=== PATIENT | female | born 1960 | race African-American/Black ===

== ENCOUNTER 2016-08-06 04:58 | Emergency (ER) | payer OTHER, BC ==
[~2016-08-06] VITALS: Ht 162.6 cm; Wt 105.0 kg
[~2016-08-06 04:58] MED LIST: ATOR20TA42 PO; FIORIC PO; FURO20 PO; LOSA50 PO; MEDR4PAK3 PO; METO25 PO; NIFE1TAB85 PO; PERC5TAB12 PO
[2016-08-06 05:00] VITALS: BP 193/100; PULSE 113; RESP 20; TEMP 98.1; O2SAT 96
[2016-08-06] MEDS ORDERED: METO25TA3 PO (05:30)
[2016-08-06] MEDS ORDERED: BUTA1CAP PO (05:30)
[2016-08-06] MEDS ORDERED: NIFE30TA8 PO (05:30)
[2016-08-06] MEDS ORDERED: LIPI20TA PO (05:30)
[2016-08-06] MEDS ORDERED: LOSA50TA PO (05:30)
[2016-08-06] MEDS ORDERED: ACET250T3 PO (05:31)
[2016-08-06] MEDS ORDERED: SODIUM CHLORIDE 0.9% FLUSH 5 ML FLUSH IVF PRN (05:45)
[2016-08-06] MEDS ORDERED: RESP: ALBUTEROL 2.5 MG/3 ML NEB (SCH) INH ONE (05:45)
[2016-08-06] MEDS ORDERED: SODIUM CHLOR 0.9% 1000 ML INJ 1,000 ML IV ONE (05:45)
--- NOTE | 2016-08-06 05:57 | PD ---
HPI Chief Complaint: Respiratory Symptoms Time Seen by Provider: 05:29 Travel History International Travel<30 days: No Contact w/Intl Traveler<30days: No Traveled to known affect area: No History of Present Illness HPI Patient is a 56-year-old female who presents to emergency room with complaints of increased cough congestion and shortness of breath for the past 2 days. Patient reports that she has been feeling increased myalgias, no fevers but increased chills over the past 2 days. Reports that she has been coughing, reports that cough has turned into it thick yellow mucus. Reports that her chest does hurt when she coughs. Patient reports no sick contacts, reports that her symptoms have been getting worse for the past 2 days and patient became concerned. Patient with no recent travels or recent trips. Patient is a nonsmoker. PFSH Past Medical History Arthritis: No Asthma: No Anxiety: No Depression: No Heart Rhythm Problems: Yes (A-FIB) Cancer: Yes (CERVICAL CANCER IN 1990) Cardiac Catheterization: Yes Cardiovascular Problems: Yes High Cholesterol: No Chest Pain: No Congestive Heart Failure: No COPD: No Cerebrovascular Accident: No Diminished Hearing: No Endocrine: No Gastrointestinal Disorders: No GERD: No Genitourinary: No Headaches: No Hepatitis: No Hiatal Hernia: No Hypertension: Yes Immune Disorder: No Kidney Stones: No Medical other: Yes (PSEUDOTUMOR CERABRA/ INCREASED ICP) Musculoskeletal: No Neurologic: Yes Psychiatric: No Reproductive: No Respiratory: No Immunizations Current: Yes Migraines: Yes Myocardial Infarction: No Radiation Therapy: Yes Renal Failure: No Seizures: No Ulcer: No Menopausal: Yes : 3 Para: 3 Tubal Ligation: Yes Past Surgical History Abdominal Surgery: Yes Appendectomy: No Cardiac Surgery: Yes (CARDIAC CATH) Cholecystectomy: Yes Ear Surgery: No Endocrine Surgery: No Eye Surgery: No Genitourinary Surgery: Yes Gynecologic Surgery: Yes (TUBAL 1990) Joint Replacement: No Neurologic Surgery: Yes Oral Surgery: No Pacemaker: No Thoracic Surgery: Yes Tonsillectomy: Yes Other Surgery: Yes (CERVICAL HAD RADIATION IMPLANTS R/T CANCER) Social History Alcohol Use: Yes (OCC) Tobacco Use: No Substance Use: No Allergies-Medications (Allergen,Severity, Reaction): Coded Allergies: Iohexol (OMNIPAQUE) (Verified Allergy, Severe, RADIOACTIVE DYE,NEEDS PREMEDS,SWELLING, 08/06/16) Morphine (Verified Allergy, Severe, Anaphylaxis, 08/06/16) Reported Meds & Prescriptions Reported Meds & Active Scripts Active Azithromycin 500 Mg Tab 500 Mg PO DAILY Proair Hfa 8.5 GM Inh (Albuterol Sulfate) 90 Mcg/Act Aer 2 Puff INH Q4-6H PRN 108 mcg/actuation Prednisone 20 Mg Tab 20 Mg PO BID 5 Days Reported Acetazolamide 250 Mg Tab 250 Mg PO TID Nifedipine ER 24 HR (Nifedipine) 30 Mg Tab 1 Tab PO DAILY Metoprolol Tartrate 25 Mg Tab 25 Mg PO BID Losartan (Losartan Potassium) 50 Mg Tab 50 Mg PO DAILY Lipitor (Atorvastatin Calcium) 20 Mg Tab 20 Mg PO HS Fioricet (Sfjfzgdrvs-Ahwedshhcsfil-Ifxuyynp) 50-300-40 Mg Cap 1 Cap PO Q4H PRN Review of Systems General / Constitutional: Positive: Chills, No: Fever Eyes: No: Visual changes HENT: No: Headaches Cardiovascular: No: Chest Pain or Discomfort Respiratory: Positive: Cough, Shortness of Breath Gastrointestinal: No: Abdominal Pain Genitourinary: No: Dysuria Musculoskeletal: No: Pain Skin: No Rash Neurologic: No: Weakness Psychiatric: No: Depression Endocrine: No: Polydipsia Hematologic/Lymphatic: No: Easy Bruising Physical Exam Narrative GENERAL: No acute distress, nontoxic SKIN: Warm and dry. HEAD: Atraumatic. Normocephalic. EYES: Pupils equal and round. No scleral icterus. No injection or drainage. ENT: No nasal bleeding or discharge. Mucous membranes pink and moist. Patient with increased nasal congestion NECK: Trachea midline. No JVD. CARDIOVASCULAR: Regular rate and rhythm. No murmur appreciated. RESPIRATORY: No accessory muscle use. Clear to auscultation. Breath sounds equal bilaterally. GASTROINTESTINAL: Abdomen soft, non-tender, nondistended. Hepatic and splenic margins not palpable. MUSCULOSKELETAL: No obvious deformities. No clubbing. No cyanosis. No edema. NEUROLOGICAL: Awake and alert. No obvious cranial nerve deficits. Motor grossly within normal limits. Normal speech. Data Data Last Documented VS Vital Signs Date Time Temp Pulse Resp B/P Pulse Ox O2 Delivery O2 Flow Rate FiO2 08/06/16 06:45 90 18 171/100 98 Room Air 08/06/16 05:00 98.1 Orders Electrocardiogram (08/06/16 05:36) Complete Blood Count With Diff (08/06/16 05:36) Comprehensive Metabolic Panel (08/06/16 05:36) Influenzae A/B Antigen (08/06/16 05:36) Chest, Single Ap (08/06/16 05:36) Ecg Monitoring (08/06/16 05:36) Iv Access Insert/Monitor (08/06/16 05:36) Oximetry (08/06/16 05:36) Sodium Chloride 0.9% Flush (Ns Flush) (08/06/16 05:45) Sodium Chlor 0.9% 1000 Ml Inj (Ns 1000 M (08/06/16 05:45) Albuterol Neb (Albuterol Neb) (08/06/16 05:45) Methylprednisolone So Succ Inj (Solumedr (08/06/16 06:15) Acetaminophen (Tylenol) (08/06/16 06:45) Labs Laboratory Tests Test 08/06/16 05:40 White Blood Count 6.7 TH/MM3 Red Blood Count 4.39 MIL/MM3 Hemoglobin 12.9 GM/DL Hematocrit 38.1 % Mean Corpuscular Volume 86.9 FL Mean Corpuscular Hemoglobin 29.3 PG Mean Corpuscular Hemoglobin 33.7 % Concent Red Cell Distribution Width 13.8 % Platelet Count 378 TH/MM3 Mean Platelet Volume 7.9 FL Neutrophils (%) (Auto) 41.1 % Lymphocytes (%) (Auto) 49.1 % Monocytes (%) (Auto) 7.0 % Eosinophils (%) (Auto) 2.1 % Basophils (%) (Auto) 0.7 % Neutrophils # (Auto) 2.8 TH/MM3 Lymphocytes # (Auto) 3.3 TH/MM3 Monocytes # (Auto) 0.5 TH/MM3 Eosinophils # (Auto) 0.1 TH/MM3 Basophils # (Auto) 0.0 TH/MM3 CBC Comment DIFF FINAL Differential Comment Sodium Level 140 MEQ/L Potassium Level 3.3 MEQ/L Chloride Level 106 MEQ/L Carbon Dioxide Level 26.4 MEQ/L Anion Gap 8 MEQ/L Blood Urea Nitrogen 12 MG/DL Creatinine 0.76 MG/DL Estimat Glomerular Filtration 95 ML/MIN Rate Random Glucose 107 MG/DL Calcium Level 8.6 MG/DL Total Bilirubin 0.4 MG/DL Aspartate Amino Transf 16 U/L (AST/SGOT) Alanine Aminotransferase 24 U/L (ALT/SGPT) Alkaline Phosphatase 92 U/L Total Protein 8.4 GM/DL Albumin 3.7 GM/DL MDM Medical Decision Making Medical Screen Exam Complete: Yes Emergency Medical Condition: Yes Interpretation(s) EKG: NSR at 88bpm, qt/qtc: 304/350 nonspecific t wave changes Vital Signs Date Time Temp Pulse Resp B/P Pulse Ox O2 Delivery O2 Flow Rate FiO2 08/06/16 05:16 113 20 96 Room Air 08/06/16 05:00 98.1 113 20 193/100 96 Room Air Last Impressions Chest X-Ray 08/06/16 0536 Signed Impressions: Service Date/Time: Saturday, August 06, 2016 05:40 - CONCLUSION: Left basilar subsegmental atelectasis. Carl Brown MD Laboratory Tests Test 08/06/16 05:40 White Blood Count 6.7 TH/MM3 (4.0-11.0) Red Blood Count 4.39 MIL/MM3 (4.00-5.30) Hemoglobin 12.9 GM/DL (11.6-15.3) Hematocrit 38.1 % (35.0-46.0) Mean Corpuscular Volume 86.9 FL (80.0-100.0) Mean Corpuscular Hemoglobin 29.3 PG (27.0-34.0) Mean Corpuscular Hemoglobin 33.7 % Concent (32.0-36.0) Red Cell Distribution Width 13.8 % (11.6-17.2) Platelet Count 378 TH/MM3 (150-450) Mean Platelet Volume 7.9 FL (7.0-11.0) Neutrophils (%) (Auto) 41.1 % (16.0-70.0) Lymphocytes (%) (Auto) 49.1 % (9.0-44.0) Monocytes (%) (Auto) 7.0 % (0.0-8.0) Eosinophils (%) (Auto) 2.1 % (0.0-4.0) Basophils (%) (Auto) 0.7 % (0.0-2.0) Neutrophils # (Auto) 2.8 TH/MM3 (1.8-7.7) Lymphocytes # (Auto) 3.3 TH/MM3 (1.0-4.8) Monocytes # (Auto) 0.5 TH/MM3 (0-0.9) Eosinophils # (Auto) 0.1 TH/MM3 (0-0.4) Basophils # (Auto) 0.0 TH/MM3 (0-0.2) CBC Comment DIFF FINAL Differential Comment Sodium Level 140 MEQ/L (136-145) Potassium Level 3.3 MEQ/L (3.5-5.1) Chloride Level 106 MEQ/L (98-107) Carbon Dioxide Level 26.4 MEQ/L (21.0-32.0) Anion Gap 8 MEQ/L (5-15) Blood Urea Nitrogen 12 MG/DL (7-18) Creatinine 0.76 MG/DL (0.50-1.00) Estimat Glomerular Filtration 95 ML/MIN (>89) Rate Random Glucose 107 MG/DL (74-106) Calcium Level 8.6 MG/DL (8.5-10.1) Total Bilirubin 0.4 MG/DL (0.2-1.0) Aspartate Amino Transf 16 U/L (15-37) (AST/SGOT) Alanine Aminotransferase 24 U/L (10-53) (ALT/SGPT) Alkaline Phosphatase 92 U/L (45-117) Total Protein 8.4 GM/DL (6.4-8.2) Albumin 3.7 GM/DL (3.4-5.0) Microbiology Date/Time Procedure Status Source Growth 08/06/16 06:30 Influenza Types A,B Antigen ([place]) Received Nasal Aspirate Pending Differential Diagnosis Influenza, pneumonia, URI, sinusitis Narrative Course Patient is a 56-year-old female who presents to emergency room with complaints of not feeling well. Patient reports that for the past 2 days, she has increased productive cough with increased nasal congestion with increased chills and as well as myalgias. Patient with no sick contacts. Patient reports that her symptoms today getting worse over the past 2 days, patient here for evaluation. pt placed on cardiac, ekg ordered, cbc, bmp and influenza ordered for evaluation of symptoms, chest xray ordered as well. will give pt iv fluids and steroids and neb treatment and re-evaluate pt Patient reevaluated, patient reports that she is feeling much better, will discharge patient to home with instructions to follow-up with her primary care doctor. Patient will return to ER as needed Diagnosis Primary Impression: URI (upper respiratory infection) Qualified Code: J06.9 - Viral upper respiratory tract infection Additional Impression: Bronchitis Patient Instructions: General Instructions Additional Instructions: Please return to ER as needed Please follow-up with your primary care doctor Please drink plenty of fluids Med/Other Pt SpecificInfo: Prescription(s) given Scripts Azithromycin 500 Mg [id number] Mg PO DAILY #5 TAB Ref 0 Prov:Chata Guzman DO 08/06/16 Albuterol 8.5 GM Inh (Proair Hfa 8.5 GM Inh)90 Mcg/Act Aer2 Puff INH Q4-6H PRN ( SHORTNESS OF BREATH) #1 INHALER Ref 0 108 mcg/actuation Prov:Chata Guzman DO 08/06/16 Prednisone 20 Mg Tab20 Mg PO BID 5 Days Ref 0 Prov:Chata Guzman DO 08/06/16 Disposition: 01 DISCHARGE HOME Condition: Stable Chata Guzman DO Aug 06, 2016 05:57
[2016-08-06 06:00] VITALS: BP 140/77; PULSE 92; RESP 18; O2SAT 97
[2016-08-06 06:00] LABS: AUTOMATED NEUTROPHIL # 2.8 TH/MM3 (1.8-7.7); BASOPHIL % 0.7 % (0.0-2.0); EOSINOPHIL # 0.1 TH/MM3 (0-0.4); EOSINOPHIL % 2.1 % (0.0-4.0); HEMATOCRIT 38.1 % (35.0-46.0); HEMO FLAGS DIFF FINAL; LYMPH % 49.1 % (9.0-44.0); LYMPHOCYTE # 3.3 TH/MM3 (1.0-4.8); MEAN CELL VOLUME 86.9 FL (80.0-100.0); MEAN CORPUSCULAR HEMOGLOBIN 29.3 PG (27.0-34.0); MEAN CORPUSCULAR HGB CONC 33.7 % (32.0-36.0); NEUT % 41.1 % (16.0-70.0); PLATELET COUNT 378 TH/MM3 (150-450); RED BLOOD COUNT 4.39 MIL/MM3 (4.00-5.30); RED CELL DISTRIBUTION WIDTH 13.8 % (11.6-17.2); WHITE BLOOD COUNT 6.7 TH/MM3 (4.0-11.0)
--- NOTE | 2016-08-06 06:03 | RADRPT ---
EXAM DATE/TIME: 08/06/2016 05:40 [facility] COMPARISON: CHEST SINGLE AP, July 20, 2013, 18:28. INDICATIONS : Shortness of breath. MEDICAL HISTORY : Hypertension. Cardiovascular disease. SURGICAL HISTORY : Tubal ligation. ENCOUNTER: Initial ACUITY: 1 day PAIN SCORE: 0/10 LOCATION: Bilateral chest FINDINGS: A single view of the chest demonstrates left basilar subsegmental atelectasis without evidence of mas s, infiltrate or effusion. Heart normal in size. The cardiomediastinal contours are unremarkable. O sseous structures are intact. CONCLUSION: Left basilar subsegmental atelectasis. Carl Brown MD on August 06, 2016 at 6:01 Board Certified Radiologist. This report was verified electronically.
[2016-08-06] MEDS ORDERED: methylPREDNISolone SOD SUCC 125 MG/2 ML VIAL IVP ONE (06:15)
[2016-08-06 06:25] LABS: ANION GAP 8 MEQ/L (5-15); AST (GOT) 16 U/L (15-37); BICARBONATE 26.4 MEQ/L (21.0-32.0); BLOOD UREA NITROGEN 12 MG/DL (7-18); CHLORIDE 106 MEQ/L (98-107); GLOMERULAR FILTRATION RATE 95 ML/MIN (>89); POTASSIUM 3.3 MEQ/L (3.5-5.1); SODIUM (NA) 140 MEQ/L (136-145)
[2016-08-06 06:28] LABS: ALKALINE PHOSPHATASE 92 U/L (45-117); ALT (GPT) 24 U/L (10-53); TOTAL BILIRUBIN ADULT 0.4 MG/DL (0.2-1.0)
[2016-08-06 06:45] VITALS: BP 171/100; PULSE 90; RESP 18; O2SAT 98
[2016-08-06] MEDS ORDERED: ACETAMINOPHEN 325 MG TAB PO ONE (06:45)
[2016-08-06] MEDS ORDERED: PRED20 PO (06:59)
[2016-08-06] MEDS ORDERED: AZIT500T2 PO (06:59)
[2016-08-06] MEDS ORDERED: ALBUAER3 INH (06:59)
--- NOTE | 2016-08-06 08:20 | EKG ---
Date Performed: 08/06/2016 Time Performed: 06:40:30 PTAGE: 56 years EKG: Sinus rhythm NONSPECIFIC T-WAVE ABNORMALITY BORDERLINE ECG PREVIOUS TRACING : 12/10/2015 06.30 No significant change from previous tracing noted. DOCTOR: Santhosh Garcia Interpretating Date/Time 08/06/2016 08:18:44
== END 2016-08-06 07:36 | disposition home or self-care (01) ==
LOC: NEPC 04:58
DX: J06.9 Acute upper respiratory infection, unspecified (principal); B97.89 Other viral agents as the cause of diseases classified elsewhere; J40 Bronchitis, not specified as acute or chronic; M79.1 Myalgia; R94.31 Abnormal electrocardiogram [ECG] [EKG]; I10 Essential (primary) hypertension; I48.91 Unspecified atrial fibrillation; Z85.41 Personal history of malignant neoplasm of cervix uteri; Z86.79 Personal history of other diseases of the circulatory system; Z86.69 Personal history of other diseases of the nervous system and sense organs
CPT/HCPCS: 71010; 80053; 85025; 87804; 93005; 94664; 96361; 96374; 99284; J2930; J7030; J7613

== ENCOUNTER 2017-06-06 23:13 | Emergency (ER) | payer BC, OTHER ==
[~2017-06-06] VITALS: Ht 165.1 cm; Wt 100.0 kg
[~2017-06-06 23:13] MED LIST changes: +ACET250T3 PO; -ATOR20TA42 PO; +BUTA1CAP PO; -FIORIC PO; -FURO20 PO; +LIPI20TA PO; -LOSA50 PO; +LOSA50TA PO; -MEDR4PAK3 PO; -METO25 PO; +METO25TA3 PO; -NIFE1TAB85 PO; +NIFE30TA8 PO; -PERC5TAB12 PO
[2017-06-06 23:22] VITALS: BP 174/97; PULSE 93; RESP 18; TEMP 98.1; O2SAT 98
[2017-06-06] MEDS ORDERED: ASPIRIN 325 MG TAB PO ONE (23:30)
[2017-06-06] MEDS ORDERED: SODIUM CHLORIDE 0.9% FLUSH 10 ML FLUSH IVF PRN (23:30)
[2017-06-06] MEDS ORDERED: OXYC-392 PO (23:36)
[2017-06-06] MEDS ORDERED: LOSA100T PO (23:36)
[2017-06-06] MEDS ORDERED: ATOR80TA45 PO (23:36)
[2017-06-06] MEDS ORDERED: ASPI-516 CHEW (23:36)
--- NOTE | 2017-06-06 23:41 | PD ---
HPI Chief Complaint: Chest Pain Time Seen by Provider: 23:29 Travel History International Travel<30 days: No Contact w/Intl Traveler<30days: No Traveled to known affect area: No History of Present Illness HPI The patient is a 57-year-old female that complains of intermittent left and right shoulder pain and right chest pain since yesterday morning. The patient does have a history of coronary artery disease which is rather mild, at coronary angiogram done in March of this year showed a 50% and 30% blockages. This was done by Dr. Ibanez. She was treated medically for elevated cholesterol and her hypertension. She denies diaphoresis, nausea. She did take nitroglycerin today at 1800 with no relief. She claims a pain level of 6/10 and an aching type character. PFSH Past Medical History Arthritis: No Asthma: No Anxiety: No Depression: No Heart Rhythm Problems: Yes (A-FIB) Cancer: Yes (cervical) Cardiac Catheterization: Yes Cardiovascular Problems: Yes High Cholesterol: No Chest Pain: No Congestive Heart Failure: No COPD: No Cerebrovascular Accident: No Coronary Artery Disease: Yes Diminished Hearing: No Endocrine: No Gastrointestinal Disorders: No GERD: No Genitourinary: No Headaches: No Hepatitis: No Hiatal Hernia: No Hypertension: Yes Immune Disorder: No Kidney Stones: No Musculoskeletal: No Neurologic: Yes Psychiatric: No Reproductive: No Respiratory: No Immunizations Current: Yes Migraines: Yes Myocardial Infarction: No Radiation Therapy: Yes Renal Failure: No Seizures: No Ulcer: No Tetanus Vaccination: Unknown Influenza Vaccination: No ?: Not LMP: 1991 Menopausal: Yes : 3 Para: 3 Tubal Ligation: Yes Past Surgical History Abdominal Surgery: Yes Appendectomy: No Cardiac Surgery: Yes (CARDIAC CATH) Cholecystectomy: Yes Ear Surgery: No Endocrine Surgery: No Eye Surgery: No Genitourinary Surgery: Yes Gynecologic Surgery: Yes (TUBAL 1991) Joint Replacement: No Neurologic Surgery: Yes Oral Surgery: No Pacemaker: No Thoracic Surgery: Yes Tonsillectomy: Yes Other Surgery: Yes (CERVICAL HAD RADIATION IMPLANTS R/T CANCER) Social History Alcohol Use: No Tobacco Use: No Substance Use: No Allergies-Medications (Allergen,Severity, Reaction): Coded Allergies: iohexol (Verified Allergy, Severe, RADIOACTIVE DYE,NEEDS PREMEDS,SWELLING , 06/06/17) morphine (Verified Allergy, Severe, Anaphylaxis, 06/06/17) Reported Meds & Prescriptions Reported Meds & Active Scripts Active Reported Oxycodone (Oxycodone HCl) 5 Mg Tab 5 Mg PO Q6HR Aspirin 81 Mg Chew 81 Mg CHEW DAILY Losartan (Losartan Potassium) 100 Mg Tab 100 Mg PO DAILY Atorvastatin (Atorvastatin Calcium) 80 Mg Tab 80 Mg PO HS Acetazolamide 250 Mg Tab 500 Mg PO BID Nifedipine ER 24 HR (Nifedipine) 30 Mg Tab 1 Tab PO DAILY Metoprolol Tartrate 25 Mg Tab 25 Mg PO BID Review of Systems Except as stated in HPI: all other systems reviewed are Neg Physical Exam Narrative GENERAL: The patient is alert, oriented 3, somewhat anxious, in minimal distress with her right chest pain and left shoulder pain. Her vital signs show blood pressure 1 7497 with heart rate of 93 but otherwise normal. SKIN: Focused skin assessment warm/dry. HEAD: Atraumatic. Normocephalic. EYES: Pupils equal and round. No scleral icterus. No injection or drainage. ENT: No nasal bleeding or discharge. Mucous membranes pink and moist. NECK: Trachea midline. No JVD. CARDIOVASCULAR: Regular rate and rhythm. No murmur appreciated. I can completely reproduce the patient's pain by pressing on the chest wall on the right and squeezing the trapezius muscle on the left shoulder. RESPIRATORY: No accessory muscle use. Clear to auscultation. Breath sounds equal bilaterally. GASTROINTESTINAL: Abdomen soft, non-tender, nondistended. Hepatic and splenic margins not palpable. MUSCULOSKELETAL: No obvious deformities. No clubbing. No cyanosis. No edema. NEUROLOGICAL: Awake and alert. No obvious cranial nerve deficits. Motor grossly within normal limits. Normal speech. PSYCHIATRIC: Appropriate mood and affect except for mild anxiety; insight and judgment normal. Data Data Last Documented VS Vital Signs Date Time Temp Pulse Resp B/P (MAP) Pulse Ox O2 Delivery O2 Flow Rate FiO2 06/07/17 00:39 68 16 135/79 (97) 99 Room Air 06/06/17 23:42 2.00 06/06/17 23:22 98.1 Orders Orders Electrocardiogram (06/06/17 23:29) Ckmb (Isoenzyme) Profile (06/06/17 23:29) Complete Blood Count With Diff (06/06/17 23:29) Comprehensive Metabolic Panel (06/06/17 23:29) Magnesium (Mg) (06/06/17 23:29) Troponin I (06/06/17 23:29) Ecg Monitoring (06/06/17 23:29) Bilateral Bp Monitoring (06/06/17 23:29) Iv Access Insert/Monitor (06/06/17 23:29) Oximetry (06/06/17 23:29) Oxygen Administration (06/06/17 23:29) Aspirin (Aspirin) (06/06/17 23:30) Sodium Chloride 0.9% Flush (Ns Flush) (06/06/17 23:30) Nitroglycerin Sl (Nitrostat Sl) (06/06/17 23:30) Chest, Pa & Lat (06/06/17 23:29) Labs Laboratory Tests Test 06/06/17 23:38 White Blood Count 6.0 TH/MM3 Red Blood Count 4.29 MIL/MM3 Hemoglobin 12.2 GM/DL Hematocrit 38.0 % Mean Corpuscular Volume 88.5 FL Mean Corpuscular Hemoglobin 28.5 PG Mean Corpuscular Hemoglobin Concent 32.2 % Red Cell Distribution Width 13.2 % Platelet Count 398 TH/MM3 Mean Platelet Volume 7.9 FL Neutrophils (%) (Auto) 28.8 % Lymphocytes (%) (Auto) 63.3 % Monocytes (%) (Auto) 5.8 % Eosinophils (%) (Auto) 1.4 % Basophils (%) (Auto) 0.7 % Neutrophils # (Auto) 1.7 TH/MM3 Lymphocytes # (Auto) 3.9 TH/MM3 Monocytes # (Auto) 0.3 TH/MM3 Eosinophils # (Auto) 0.1 TH/MM3 Basophils # (Auto) 0.0 TH/MM3 CBC Comment DIFF FINAL Differential Comment Blood Urea Nitrogen 12 MG/DL Creatinine 0.84 MG/DL Random Glucose 110 MG/DL Total Protein 7.9 GM/DL Albumin 3.6 GM/DL Calcium Level 8.9 MG/DL Magnesium Level 2.2 MG/DL Alkaline Phosphatase 87 U/L Aspartate Amino Transf (AST/SGOT) 16 U/L Alanine Aminotransferase (ALT/SGPT) 22 U/L Total Bilirubin 0.2 MG/DL Sodium Level 138 MEQ/L Potassium Level 3.6 MEQ/L Chloride Level 107 MEQ/L Carbon Dioxide Level 21.6 MEQ/L Anion Gap 9 MEQ/L Estimat Glomerular Filtration Rate 84 ML/MIN Total Creatine Kinase 90 U/L Troponin I LESS THAN 0.02 NG/ML MDM Medical Decision Making Medical Screen Exam Complete: Yes Emergency Medical Condition: Yes Medical Record Reviewed: Yes Interpretation(s) The CBC is normal. The EKG shows sinus rhythm of 83 and is completely normal. The CBC is normal. The troponin I is normal and the complete metabolic profile is normal except for a GFR of 84. Differential Diagnosis Musculoskeletal pain, pleuritic pain, acute coronary syndrome-unlikely, esophageal pain, gastrointestinal pain, atypical chest pain Narrative Course The patient appears to have atypical chest pain. This is likely chest wall pain. It does not appear to be any thing related to the heart at this time. Diagnosis Primary Impression: Atypical chest pain Additional Instructions: As we discussed, follow-up with Dr. Ibanez. At this time this does not appear to be heart related pain. Disposition: 01 DISCHARGE HOME Condition: Stable Christopher Blandon MD Jun 06, 2017 23:41
[2017-06-06 23:42] VITALS: BP_SYST 152; BP_SYST 162; BP_DIAS 95; BP_DIAS 97; O2SAT 98
[2017-06-06 23:45] LABS: AUTOMATED NEUTROPHIL # 1.7 TH/MM3 (1.8-7.7); BASOPHIL % 0.7 % (0.0-2.0); EOSINOPHIL # 0.1 TH/MM3 (0-0.4); EOSINOPHIL % 1.4 % (0.0-4.0); HEMO FLAGS DIFF FINAL; LYMPH % 63.3 % (9.0-44.0); LYMPHOCYTE # 3.9 TH/MM3 (1.0-4.8); MEAN CELL VOLUME 88.5 FL (80.0-100.0); MEAN CORPUSCULAR HEMOGLOBIN 28.5 PG (27.0-34.0); MEAN CORPUSCULAR HGB CONC 32.2 % (32.0-36.0); MONO % 5.8 % (0.0-8.0); NEUT % 28.8 % (16.0-70.0); PLATELET COUNT 398 TH/MM3 (150-450); RED BLOOD COUNT 4.29 MIL/MM3 (4.00-5.30); RED CELL DISTRIBUTION WIDTH 13.2 % (11.6-17.2)
[2017-06-06 23:52] LABS: CHLORIDE 107 MEQ/L (98-107); POTASSIUM 3.6 MEQ/L (3.5-5.1); SODIUM (NA) 138 MEQ/L (136-145)
[2017-06-06] MEDS: NITROGLYCERIN 0.4 MG SL 25 TABS/BTL SL SCH (23:53)
[2017-06-06 23:56] LABS: ANION GAP 9 MEQ/L (5-15); BICARBONATE 21.6 MEQ/L (21.0-32.0); BLOOD UREA NITROGEN 12 MG/DL (7-18); MAGNESIUM 2.2 MG/DL (1.5-2.5)
[2017-06-06 23:58] VITALS: BP 120/71
[2017-06-06 23:59] LABS: ALT (GPT) 22 U/L (10-53); AST (GOT) 16 U/L (15-37); GLOMERULAR FILTRATION RATE 84 ML/MIN (>89)
[2017-06-07] LABS: TOTAL BILIRUBIN ADULT 0.2 MG/DL (0.2-1.0)
[2017-06-07] MEDS: NITROGLYCERIN 0.4 MG SL 25 TABS/BTL SL SCH ×2 (00:01→00:18)
[2017-06-07 00:02] LABS: ALKALINE PHOSPHATASE 87 U/L (45-117)
[2017-06-07 00:03] LABS: CREATINE KINASE 90 U/L (26-192)
--- NOTE | 2017-06-07 00:09 | RADRPT ---
EXAM DATE/TIME: 06/06/2017 23:45 [facility] COMPARISON: No previous studies available for comparison. INDICATIONS : Chest pain for 24 hours MEDICAL HISTORY : Hypertension. Cardiovascular disease cervical cancer SURGICAL HISTORY : Tubal ligation. ENCOUNTER: Initial ACUITY: 1 day PAIN SCORE: 7/10 LOCATION: Bilateral upper chest FINDINGS: The cardiac silhouette is enlarged in transverse diameter. The lungs are free of acute parenchymal op acity. No effusions are identified. Osseous structures are intact. CONCLUSION: Cardiomegaly. No acute cardiopulmonary disease. Santos Joseph MD on June 07, 2017 at 0:07 Board Certified Radiologist. This report was verified electronically.
[2017-06-07 00:18] VITALS: BP 140/78
[2017-06-07 00:36] VITALS: BP 145/75; PULSE 75; RESP 18; O2SAT 98
[2017-06-07 00:39] VITALS: BP 135/79; PULSE 68; RESP 16; O2SAT 99
[2017-06-07 01:04] VITALS: BP 142/75; TEMP 98.4
--- NOTE | 2017-06-07 18:08 | EKG ---
Date Performed: 06/06/2017 Time Performed: 23:26:29 PTAGE: 57 years EKG: Sinus rhythm NORMAL ECG NO PREVIOUS TRACING DOCTOR: Tahir Manzanares Interpretating Date/Time 06/07/2017 18:06:41
== END 2017-06-07 01:08 | disposition home or self-care (01) ==
LOC: PHED 23:13
DX: R07.89 Other chest pain (principal); I25.10 Atherosclerotic heart disease of native coronary artery without angina pectoris; E78.00 Pure hypercholesterolemia, unspecified; I10 Essential (primary) hypertension; Z86.79 Personal history of other diseases of the circulatory system
CPT/HCPCS: 71020; 80053; 82550; 83735; 84484; 85025; 93005; 99285

== ENCOUNTER 2017-10-01 06:21 | Emergency (ER) | payer BC ==
[~2017-10-01 06:21] MED LIST changes: +ASPI-516 CHEW; +ATOR80TA45 PO; -BUTA1CAP PO; -LIPI20TA PO; +LOSA100T PO; -LOSA50TA PO; +OXYC-392 PO
[2017-10-02] MEDS ORDERED: ACET250T3 PO (07:29)
[2017-10-02] MEDS ORDERED: FURO1TAB62 PO (07:29)
[2017-10-02] MEDS ORDERED: ZITHTAB PO (09:21)
== END 2017-10-01 07:20 | disposition left against medical advice (07) ==
LOC: NED 06:21
DX: J00 Acute nasopharyngitis [common cold] (principal)
CPT/HCPCS: 99281

== ENCOUNTER 2017-10-02 07:00 | Emergency (ER) | payer SELFPAY ==
[~2017-10-02] VITALS: Ht 165.1 cm; Wt 95.5 kg
[2017-10-02 07:07] VITALS: BP 155/92; PULSE 104; RESP 22; TEMP 99.5; O2SAT 99
[2017-10-02 07:25] VITALS: BP 144/94; PULSE 95; RESP 19; TEMP 99.4; O2SAT 98
[2017-10-02] MEDS ORDERED: ACET250T3 PO (07:29)
[2017-10-02] MEDS ORDERED: FURO1TAB62 PO (07:29)
--- NOTE | 2017-10-02 07:45 | RADRPT ---
EXAM DATE/TIME: 10/02/2017 07:40 [facility] COMPARISON: CHEST SINGLE AP, August 06, 2016, 5:40. INDICATIONS : Cough and congestion for the past few days. MEDICAL HISTORY : Hypertension. Cardiovascular disease cervical cancer SURGICAL HISTORY : Tubal ligation. Cardiac cath. ENCOUNTER: Initial ACUITY: 3 days PAIN SCORE: 2/10 LOCATION: Bilateral chest FINDINGS: A single view of the chest demonstrates the lungs to be symmetrically aerated without evidence of mas s, infiltrate or effusion. The cardiomediastinal contours are unremarkable. Osseous structures are intact. CONCLUSION: No acute disease. Neal Ceron MD on October 02, 2017 at 7:43 Board Certified Radiologist. This report was verified electronically.
--- NOTE | 2017-10-02 07:52 | PD ---
HPI Chief Complaint: Chest Pain Time Seen by Provider: 07:22 Travel History International Travel<30 days: No Contact w/Intl Traveler<30days: No Traveled to known affect area: No History of Present Illness HPI This is a 57-year-old female with a history of idiopathic intracranial hypertension, hyperlipidemia, coronary artery disease, hypertension, who presents today with complaints of cold cough type symptoms as well as chest pain. Patient states that she has had cold and cough symptoms now for 2-3 days. She reports fevers as well as constant congestion. She also states she has left-sided flank pain. There is no urinary frequency or dysuria. She does have decreased urine output per patient. Patient takes Lasix and acetazolamide for her pseudotumor. She describes the pain as precordial. There is no radiation. She does have associated shortness of breath. Patient states she was cathed in March 2017 and had to vessels 1 was 30% one was 40%. They did not stent these vessels. Patient states she took nitroglycerin at home with no relief of the pain. PFSH Past Medical History Arthritis: No Asthma: No Anxiety: No Depression: No Heart Rhythm Problems: Yes (A-FIB) Cancer: Yes (cervical) Cardiac Catheterization: Yes Cardiovascular Problems: Yes High Cholesterol: No Chest Pain: No Congestive Heart Failure: No COPD: No Cerebrovascular Accident: No Coronary Artery Disease: Yes Diminished Hearing: No Endocrine: No Gastrointestinal Disorders: No GERD: No Genitourinary: No Headaches: No Hepatitis: No Hiatal Hernia: No Hypertension: Yes Immune Disorder: No Kidney Stones: No Musculoskeletal: No Neurologic: Yes Psychiatric: No Reproductive: No Respiratory: No Immunizations Current: Yes Migraines: Yes Myocardial Infarction: No Radiation Therapy: Yes Renal Failure: No Seizures: No Ulcer: No Tetanus Vaccination: Unknown Influenza Vaccination: No ?: Not Menopausal: Yes : 3 Para: 3 Tubal Ligation: Yes Past Surgical History Abdominal Surgery: Yes Appendectomy: No Cardiac Surgery: Yes (CARDIAC CATH) Cholecystectomy: Yes Ear Surgery: No Endocrine Surgery: No Eye Surgery: No Genitourinary Surgery: Yes Gynecologic Surgery: Yes (TUBAL 1991) Joint Replacement: No Neurologic Surgery: Yes Oral Surgery: No Pacemaker: No Thoracic Surgery: Yes Tonsillectomy: Yes Other Surgery: Yes (CERVICAL HAD RADIATION IMPLANTS R/T CANCER) Social History Alcohol Use: No Tobacco Use: No Substance Use: No Allergies-Medications (Allergen,Severity, Reaction): Coded Allergies: iohexol (Verified Allergy, Severe, RADIOACTIVE DYE,NEEDS PREMEDS,SWELLING , 10/02/17) morphine (Verified Allergy, Severe, Anaphylaxis, 10/02/17) Reported Meds & Prescriptions Reported Meds & Active Scripts Active Reported Lasix (Furosemide) 20 Mg Tab 20 Mg PO DAILY Acetazolamide 250 Mg Tab 250 Mg PO BID Aspirin 81 Mg Chew 81 Mg CHEW DAILY Losartan (Losartan Potassium) 100 Mg Tab 100 Mg PO DAILY Atorvastatin (Atorvastatin Calcium) 80 Mg Tab 80 Mg PO HS Metoprolol Tartrate 25 Mg Tab 25 Mg PO BID Review of Systems Except as stated in HPI: all other systems reviewed are Neg General / Constitutional: Positive: Fever, No: Chills HENT: Positive: Congestion, No: Headaches, Lightheadedness, Neck Pain Cardiovascular: Positive: Chest Pain or Discomfort, No: Palpitations Respiratory: Positive: Cough (Productive brown), Shortness of Breath, No: Wheezing Gastrointestinal: No: Nausea, Vomiting Genitourinary: Positive: Decreased Urinary Output, Flank Pain (Left), No: Dysuria Musculoskeletal: No: Weakness, Pain Skin: No Rash Neurologic: Positive: Other (Congestion), No: Weakness, Headache Physical Exam Narrative GENERAL: Well-developed well-nourished female in no acute respiratory distress. SKIN: Focused skin assessment warm/dry. HEAD: Atraumatic. Normocephalic. EYES: No scleral icterus. No injection or drainage. ENT: No nasal bleeding or discharge. Mucous membranes pink and moist. NECK: Trachea midline. No JVD. CARDIOVASCULAR: Regular rate and rhythm. Heart rate in the 90s. No murmur appreciated. RESPIRATORY: No accessory muscle use. Clear to auscultation. Breath sounds equal bilaterally. GASTROINTESTINAL: Abdomen soft, non-tender, nondistended. Hepatic and splenic margins not palpable. MUSCULOSKELETAL: No obvious deformities. No clubbing. No cyanosis. No edema. No CVA tenderness on palpation. NEUROLOGICAL: Awake and alert. No obvious cranial nerve deficits. Motor grossly within normal limits. Normal speech. PSYCHIATRIC: Appropriate mood and affect; insight and judgment normal. Data Data Last Documented VS Vital Signs Date Time Temp Pulse Resp B/P (MAP) Pulse Ox O2 Delivery O2 Flow Rate FiO2 10/02/17 07:25 99.4 95 19 144/94 (111) 98 Room Air Orders Orders Complete Blood Count With Diff (10/02/17 07:22) Comprehensive Metabolic Panel (10/02/17 07:22) Ckmb (Isoenzyme) Profile (10/02/17 07:22) Troponin I (10/02/17 07:22) Blood Culture (10/02/17 07:22) Urinalysis - C+S If Indicated (10/02/17:22) Influenzae A/B Antigen (10/02/17:22) Chest, Single Ap (10/02/17 07:22) Iv Access Insert/Monitor (10/02/17 07:22) Ecg Monitoring (10/02/17:22) Oximetry (10/02/17 07:22) CKMB (10/02/17 07:40) CKMB% (10/02/17 07:40) Labs Laboratory Tests Test 10/02/17 07:40 3 07:55 White Blood Count 5.8 TH/MM3 Red Blood Count 4.25 MIL/MM3 Hemoglobin 12.5 GM/DL Hematocrit 37.4 % Mean Corpuscular Volume 87.9 FL Mean Corpuscular Hemoglobin 29.4 PG Mean Corpuscular Hemoglobin Concent 33.4 % Red Cell Distribution Width 13.7 % Platelet Count 360 TH/MM3 Mean Platelet Volume 7.7 FL Neutrophils (%) (Auto) 31.9 % Lymphocytes (%) (Auto) 49.7 % Monocytes (%) (Auto) 12.4 % Eosinophils (%) (Auto) 5.5 % Basophils (%) (Auto) 0.5 % Neutrophils # (Auto) 1.9 TH/MM3 Lymphocytes # (Auto) 2.9 TH/MM3 Monocytes # (Auto) 0.7 TH/MM3 Eosinophils # (Auto) 0.3 TH/MM3 Basophils # (Auto) 0.0 TH/MM3 CBC Comment DIFF FINAL Differential Comment Blood Urea Nitrogen 15 MG/DL Creatinine 0.86 MG/DL Random Glucose 107 MG/DL Total Protein 8.2 GM/DL Albumin 3.6 GM/DL Calcium Level 8.5 MG/DL Alkaline Phosphatase 90 U/L Aspartate Amino Transf (AST/SGOT) 25 U/L Alanine Aminotransferase (ALT/SGPT) 26 U/L Total Bilirubin 0.5 MG/DL Sodium Level 135 MEQ/L Potassium Level 4.6 MEQ/L Chloride Level 104 MEQ/L Carbon Dioxide Level 24.3 MEQ/L Anion Gap 7 MEQ/L Estimat Glomerular Filtration Rate 82 ML/MIN Total Creatine Kinase 228 U/L Creatine Kinase MB 1.4 NG/ML Creatine Kinase MB % 0.6 % Troponin I LESS THAN 0.02 NG/ML Urine Color YELLOW Urine Turbidity CLEAR Urine pH 5.5 Urine Specific [place] 1.026 Urine Protein TRACE mg/dL Urine Glucose (UA) NEG mg/dL Urine Ketones NEG mg/dL Urine Occult Blood NEG Urine Nitrite NEG Urine Bilirubin NEG Urine Urobilinogen LESS THAN 2.0 MG/DL Urine Leukocyte Esterase NEG Urine RBC 1 /hpf Urine WBC 2 /hpf Urine Squamous Epithelial Cells 2 /hpf Urine Hyaline Casts 1 /lpf Urine Mucus FEW /lpf Microscopic Urinalysis Comment CULT NOT INDICATED MDM Medical Decision Making Medical Screen Exam Complete: Yes Emergency Medical Condition: Yes Differential Diagnosis Viral URI versus bronchitis versus influenza versus ACS Narrative Course 57-year-old female with a history of idiopathic intercranial hypertension, coronary artery disease, hyperlipidemia, hypertension, presents here with complaints of cold and cough symptoms. Patient also has left flank pain. Patient also had tightness in her chest. On re-questioning about her chest tightness, patient reports is when she coughs she feels a tightness across her chest. EKG and cardiac enzymes are within normal limits. The patient has productive cough with brown colored phlegm. Given this I will start her on a Z- Man. She reports her has similar symptoms at home and was also put on antibiotics. There is no reported fever here today. Given her history of coronary artery disease, I did offer her the chest pain center. The patient states that she wishes to go home and follow-up with her fine artist. She sees Dr. Hartley. As stated in the HPI, patient had a catheterization in March that showed a 30 and 40% blockage. Given this, ACS is unlikely. I discussed with her that while I am offering the chest pain center and she is not wishing to go through this, she should come back if she develops any worsening symptoms. She states she will do this and understands. Diagnosis Primary Impression: Bronchitis Additional Impressions: Atypical chest pain Coronary artery disease Additional Instructions: Follow-up with your fine artist, . Please call today for an appointment. Return for any reason. Take antibiotics as prescribed. Disposition: 01 DISCHARGE HOME Condition: Stable Apolinar Short MD Oct 02, 2017 07:52
[2017-10-02 08:13] LABS: AUTOMATED NEUTROPHIL # 1.9 TH/MM3 (1.8-7.7); BASOPHIL % 0.5 % (0.0-2.0); EOSINOPHIL # 0.3 TH/MM3 (0-0.4); EOSINOPHIL % 5.5 % (0.0-4.0); HEMATOCRIT 37.4 % (35.0-46.0); HEMOGLOBIN 12.5 GM/DL (11.6-15.3); LYMPH % 49.7 % (9.0-44.0); LYMPHOCYTE # 2.9 TH/MM3 (1.0-4.8); MEAN CELL VOLUME 87.9 FL (80.0-100.0); MEAN CORPUSCULAR HEMOGLOBIN 29.4 PG (27.0-34.0); MEAN CORPUSCULAR HGB CONC 33.4 % (32.0-36.0); MEAN PLATELET VOLUME 7.7 FL (7.0-11.0); MONO % 12.4 % (0.0-8.0); MONOCYTE # 0.7 TH/MM3 (0-0.9); NEUT % 31.9 % (16.0-70.0); PLATELET COUNT 360 TH/MM3 (150-450); RED BLOOD COUNT 4.25 MIL/MM3 (4.00-5.30); RED CELL DISTRIBUTION WIDTH 13.7 % (11.6-17.2); WHITE BLOOD COUNT 5.8 TH/MM3 (4.0-11.0)
[2017-10-02 08:15] LABS: BILIRUBIN, URINE NEG (NEG); BLOOD, URINE NEG (NEG); GLUCOSE,URINE NEG (NEG); HYALINE CAST, URINE 1 /lpf (RARE); KETONE, URINE NEG (NEG); MUCUS URINE FEW /lpf (OCC); NITRITE,URINE NEG (NEG); PH, URINE 5.5 (5.0-8.5); SQUAMOUS EPITHELIAL CELL URINE 2 /hpf (0-5); URINE COLOR YELLOW (YELLW/STRAW); URINE LEUKOCYTE ESTERASE NEG (NEG)
[2017-10-02 08:49] LABS: ALBUMIN 3.6 GM/DL (3.4-5.0); ALKALINE PHOSPHATASE 90 U/L (45-117); ALT (GPT) 26 U/L (10-53); AST (GOT) 25 U/L (15-37); BICARBONATE 24.3 MEQ/L (21.0-32.0); BLOOD UREA NITROGEN 15 MG/DL (7-18); CALCIUM 8.5 MG/DL (8.5-10.1); CHLORIDE 104 MEQ/L (98-107); CREATININE 0.86 MG/DL (0.50-1.00); GLOMERULAR FILTRATION RATE 82 ML/MIN (>89); GLUCOSE,RANDOM 107 MG/DL (74-106); SODIUM (NA) 135 MEQ/L (136-145); TOTAL BILIRUBIN ADULT 0.5 MG/DL (0.2-1.0); TOTAL PROTEIN 8.2 GM/DL (6.4-8.2); TROPONIN I LESS THAN 0.02 NG/ML (0.02-0.05)
[2017-10-02] MEDS ORDERED: ZITHTAB PO (09:21)
[2017-10-02 09:33] VITALS: BP 133/80
--- NOTE | 2017-10-02 13:47 | EKG ---
Date Performed: 10/02/2017 Time Performed: 07:21:33 PTAGE: 57 years EKG: Sinus rhythm PREVIOUS TRACING : 06/06/2017 23.26 DOCTOR: Adam Cevallos Interpretating Date/Time 10/02/2017 13:45:41
== END 2017-10-02 09:34 | disposition home or self-care (01) ==
LOC: NEPC 07:00
DX: J40 Bronchitis, not specified as acute or chronic (principal); R07.89 Other chest pain; I25.10 Atherosclerotic heart disease of native coronary artery without angina pectoris; I10 Essential (primary) hypertension; Z79.82 Long term (current) use of aspirin
CPT/HCPCS: 71045; 80053; 81001; 82550; 82552; 84484; 85025; 87040; 87804; 93005; 99285